=== PATIENT | male | born 2000 | race Hispanic/Latino ===

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

== ENCOUNTER 2022-05-17 10:17 | Emergency (ER) | payer MEDICAID ==
[~2022-05-17] VITALS: Ht 167.6 cm; Wt 54.4 kg
[2022-05-17 10:45] LABS: APPEARANCE,URINE CLEAR (CLEAR); BILIRUBIN,URINE NEGATIVE (NEGATIVE); COLOR,URINE LIGHT-YELLOW (YELLOW); GLUCOSE, URINE (UA) NEGATIVE (NEGATIVE); KETONES,URINE NEGATIVE (NEGATIVE); LEUKOCYTE ESTERASE ,URINE NEGATIVE Leu/uL (NEGATIVE); NITRATE,URINE NEGATIVE (NEGATIVE); OCCULT BLOOD,URINE NEGATIVE (NEGATIVE); PH,URINE 6.5 (5.0-8.0); PROTEIN,URINE NEGATIVE (NEGATIVE); UROBILINOGEN,URINE 0.2 mg/dL (0.2-1.0)
[2022-05-17] MEDS ORDERED: PROCHLORPERAZINE 10MG/2ML INJ IV ONE (11:00)
[2022-05-17] MEDS ORDERED: 0.9%NACL 1000ML 1,000 ML IV ONE ×2 (11:00→11:01)
[2022-05-17] MEDS ORDERED: DiphenhydrAMINE HCL 50 MG/ML VIAL IV ONE (11:00)
[2022-05-17] MEDS ORDERED: DiphenhydrAMINE HCL 50 MG/ML VIAL ONE (11:01)
[2022-05-17] MEDS ORDERED: PROCHLORPERAZINE 10MG/2ML INJ ONE (11:01)
[2022-05-17 11:40] VITALS: BP 14/87
== END 2022-05-17 11:45 | disposition home or self-care (01) ==
LOC: EDH 10:17
DX: R51.9 Headache, unspecified (principal); Z20.822 Contact with and (suspected) exposure to COVID-19; Z90.49 Acquired absence of other specified parts of digestive tract
CPT/HCPCS: 99285; 96374; 70450; 87635; 96361; 96375; 81003; C9803; J1200; J7030; J0780

== ENCOUNTER 2024-01-25 18:24 | Emergency (ER) | payer MEDICAID ==
[~2024-01-25] VITALS: Ht 170.2 cm; Wt 63.5 kg
[2024-01-25 18:53] VITALS: TEMP 98.1
--- NOTE | 2024-01-25 19:26 | HMCIMG ---
FINGER(S) 2+VWS RT HISTORY: Fourth digit injury COMPARISON: None TECHNIQUE: 2 images of right fourth finger were obtained. FINDINGS: There is no acute displaced fracture or dislocation. Degenerative changes are seen. IMPRESSION: 1. Findings as described above.
--- NOTE | 2024-01-25 19:36 | ERN ---
ED Note History of Present Illness Stated Complaint: RIGHT HAND INFECTION Chief Complaint: Hand Problem/Injury Time Seen by MD: 18:28 Time Seen by Midlevel: 18:28 Dictation: The patient is a 23-year-old male with no past medical history who presents to the emergency department with complaints of right 4th finger infection after he accidentally hit it with a piece metal two days ago. Patient denies any fevers. Unknown Tdap vaccine status. Allergies: Coded Allergies: No Known Drug Allergies (Unverified Allergy, Unknown, 05/17/22) Past Medical History Past Medical History: No Pertinent History, Other Additional Past Medical Hx: ADHD Surgical History: Appendectomy RN Note Reviewed/Agreed w/PFSH: Yes Review of System Dictation Constitutional: Negative for fever,chills, and weight loss Eyes: Negative for injury, pain,redness, and discharge ENT: Negative for injury,pain or swelling Cardiovascular: Negative for chest pain, palpitations, and edema Respiratory: Negative for shortness of breath, cough, and wheezing, Abdomen/GI: Negative for abdominal pain, nausea, vomiting, diarrhea, and constipation Back: Negative for injury and pain : Negative for injury, bleeding and discharge MS/Extremity: Negative for injury and deformity Skin: Negative for rash, and discoloration. Positive for right 4th finger swelling, Neuro: Negative for headache, weakness, numbness, tingling, and seizure Psych: Negative for suicide ideation, homicidal ideation, and hallucinations Initial Vital Sign VS Vital Signs Date Time Temp Pulse Resp B/P (MAP) Pulse Ox O2 Delivery O2 Flow Rate FiO2 01/25/24 18:53 98.1 56 18 138/60 100 Physical Exam Dictation Vital Signs reviewed General Appearance: Alert, oriented x 3, no acute distress, well developed, nourished. Head and Face: non-traumatic. Eyes: PERRL, pink conjunctivas, eyelid no trauma, anterior chamber with arcus senilis. Ears: Pinnas intact and no signs of trauma or erythema ear canals clear and no discharge TM no erythema Nose: No discharge, no bleeding. Oropharynx: Mouth normal, tongue pink. pharynx clear,no erythema, tonsils no exudates, no abscesses noted, mucous membrane moist Neck: Supple, non-tender, no thyromegaly, no masses, no JVD, no bruits Breast:Deferred Chest:No tenderness, no crepitus, no paradoxical movement, no retractions Lungs:Clear, well-ventilated, symmetric, no rales, no wheezing, no rhonchi, no stridor, good breath sounds bilaterally Heart: Regular rate, regular rhythm, no murmur, no gallops Vascular: no peripheral edema, Abdomen: Soft, positive bowel sounds, nondistended, no guarding, nontender, no rebound, no masses no hepatomegaly, no splenomegaly, no Azevedo's sign, no hernias. Rectal: Deferred Genital: Deferred Neurological: Normal speech, motor function intact, sensory function intact Musculoskeletal: Neck nontender, full range of motion, back nontender, full range of motion, Extremities: nontender, full range of motion right 4th finger swelling, erythema, cap refill less than 2 seconds, small superficial laceration about1 cm no active bleeding or draining, patient unable to passively flex finger Skin: Color pink, dry, no turgor, no rash, no lacerations, no abrasions, no contusions. Lymphatic: Deferred Results (Laboratory/Radiology) Laboratory/Radiology REASON: 4th digit injury, swelling ORDERING PHYSICIAN: LUKASZ MCLAUGHLIN [employer] PROCEDURE: FINGER RT - FINGER(S) 2+VWS RT FINGER(S) 2+VWS RT HISTORY: Fourth digit injury COMPARISON: None TECHNIQUE: 2 images of right fourth finger were obtained. FINDINGS: There is no acute displaced fracture or dislocation. Degenerative changes are seen. IMPRESSION: 1. Findings as described above. Labs Reviewed?: Yes ED Course ED Course Orders Procedure Category Date Status Time Finger(S) 2+Vws Rt RAD 01/25/24 Resulted 18:47 Diph,Pertuss(Acell),Tet PHA 01/25/24 Complete Vac/Pf (Tdap) 19:00 Cefazolin Sodium 1 Gm PHA 01/25/24 In Process Vial (Ancef 1 Gm V 20:00 Ketorolac PHA 01/25/24 Complete Tromethamine 30mg/Ml 20:00 Current Medications Medications (Trade) Dose Ordered Sig/Gallito Route PRN Reason Start Time Stop Time Status Last Admin Dose Admin Cefazolin Sodium (ANCEF 1 gm vial) 1 gm ONCE IVPB 01/25/24 20:00 02/04/24 19:59 Diphtheria/ Tetanus/Acell Pertussis (Tdap) 0.5 ml ONCE ONCE IM 01/25/24 19:00 01/25/24 19:01 DC 01/25/24 19:46 Ketorolac Tromethamine (toRADol) 15 mg ONCE ONCE IVP 01/25/24 20:00 01/25/24 20:01 DC Vital Signs Date Time Temp Pulse Resp B/P (MAP) Pulse Ox O2 Delivery O2 Flow Rate FiO2 01/25/24 18:53 98.1 56 18 138/60 100 Medical Decision Making MDM The patient is a 23-year-old male with no past medical history who presents to the emergency department with complaints of right 4th finger infection after he accidentally hit it with a piece metal two days ago. Patient denies any fevers. Unknown Tdap vaccine status. Patient reports also being treated for a molar tooth removal three days ago. Reports taking azithromycin at home Differential diagnosis: Phalangeal fracture, phalangeal contusion, cellulitis, abscess X-ray showed no acute fractures. Finger with erythema, patient will be treated with the antibiotics. Patient also unable to fully flex 4th finger. Suspected tendon injury. Extensively discussed with patient.the importance to follow up with Orthopedic tomorrow morning. Patient agrees to follow up with Orthopedic hand specialist. Patient continues in no acute distress will be discharged with antibiotics. Need for hospitalization: Patient does not meet criteria for hospitalization. There are no social concerns with this patient. DX & DISP Disposition: Discharge Departure Impression: Primary Impression: Cellulitis of right ring finger Additional Impressions: Finger contusion, Injury, finger Condition: Stable Scripts Sulfamethoxazole/Trimethoprim (Bactrim Ds Tablet) 800 Mg-160 Mg Tablet 1 TAB PO BID for 7 Days, #14 TAB 0 Refills Prov: LUKASZ MCLAUGHLIN [employer] 01/25/24 Additional Instructions: Please follow up with Dr. Coronado tomorrow morning from 9:00 a.m. to 11am as they take walk in during that time with the midlevel provider. It is very important that you follow up. Take antibiotics as prescribed. If symptoms worsen and you develop fever or increase pain please return to ER FOLLOW-UP WITH PRIMARY CARE PROVIDER IN 1 TO 2 DAYS. TAKE MEDICATIONS DIRECTED HERE IN THE EMERGENCY ROOM. OKAY TO CONTINUE HOME MEDICATIONS UNLESS OTHERWISE DISCUSSED DURING YOUR VISIT IN THE EMERGENCY ROOM TODAY. RETURN TO YOUR NEAREST EMERGENCY ROOM IF SYMPTOMS WORSEN OR IF THERE IS NO IMPROVEMENT. CALL 911 IF YOU NEED IMMEDIATE ASSISTANCE. TAKE TYLENOL OR MOTRIN OV [id number] NEEDED AND IF NO CONTRAINDICATIONS ARE PRESENT. INCREASE ORAL HYDRATION. A WOUND CULTURE OR URINE CULTURE WAS ORDERED HERE IN THE EMERGENCY ROOM DEPARTMENT PLEASE FOLLOW-UP WITH PRIMARY CARE PROVIDER AND ADVISE THEM TO GET REPEAT PORTS FROM OUR FACILITY. IF YOU HAD ANY HOWARD WRAP/SPLINTS THAT WERE APPLIED HERE, PLEASE DO NOT REMOVE THEM UNTIL YOU SEE YOUR PRIMARY CARE OR SPECIALTY. Referrals: MOIRA LARIOS MD (PCP) PRISCILLA CORONADO MD Time of Disposition: 20:15 I have reviewed the case, and I agree with, Diagnosis and Plan LUKASZ MCLAUGHLIN [facility] Jan 25, 2024 19:36
[2024-01-25] MEDS: DIPH,PERTUSS(ACELL),TET VAC/PF 0.5 ML VIAL IM ONE (19:46)
[2024-01-25 20:00] VITALS: BP 127/74; PULSE 55; RESP 18; O2SAT 100
[2024-01-25] MEDS ORDERED: SULF1TAB42 PO (20:20)
[2024-01-25] MEDS: ketOROlac 30MG VIAL (30MG/ML) IVP ONE (20:38)
[2024-01-25] MEDS: ceFAZolin SODIUM 1 GM VIAL IVPB SCH (20:38)
== END 2024-01-25 21:25 | disposition home or self-care (01) ==
LOC: EDH 18:24
DX: S60.00XA Contusion of unspecified finger without damage to nail, initial encounter (principal); L03.011 Cellulitis of right finger; Z90.49 Acquired absence of other specified parts of digestive tract; W22.8XXA Striking against or struck by other objects, initial encounter; Y93.89 Activity, other specified; Y92.89 Other specified places as the place of occurrence of the external cause; Y99.8 Other external cause status
CPT/HCPCS: 99284; 96365; 96375; 90715; 73140; 90471; J0690; J1885